=== PATIENT | female | born 1960 | race Hispanic/Latino ===

== ENCOUNTER 2022-06-09 14:20 | Emergency (ER) | payer BC, OTHER ==
--- OUTSIDE RECORDS SUMMARY | 2022-06-09 14:22 | XMS REPORT | Continuity of Care Document ---
:1960 Author Organization [facility] t Address [address] [place] [address] Care Team Providers Name Role Phone LU HERRERA Primary Care Physician Unavailable UL HERRERA Attending Clinician Unavailable Lu Herrera Attending Clinician SALTY ROBERTS Attending Clinician Unavailable LU HERRERA Admitting Clinician Unavailable Payers Payer Name Policy Type Policy Number Effective Date Expiration Date S ource [facility] [id number] 2021 00:00:00 Problems This patient has no known problems. Allergies, Adverse Reactions, Alerts Allergy Allergy Status Severity Reaction(s) Onset Inactive Treating Comm ents Source Name Type Date Date Clinician NO KNOWN Drug Active Univers ALLERGIE Class ity of S [facility] Social History Social Habit Start Date Stop Date Quantity Comments Source Exposure to Not sure [facility] SARS-CoV-2 (event) Medica l Branch Sex Assigned At [birth year] [facility] y [facility] 00:00:00 00:00:00 Medical Branch Smoking Status Start Date Stop Date Source Tobacco smoking consumption Univ [facility] Medications This patient has no known medications. Immunizations Ordered Filled Immunization Date Status Comments Sour e Immunization Name Name SARS-COV-2 COVID-19 2020-12-22 Completed Unive rsity of PFIZER VACCINE 00:00:00 [facility] SARS-COV-2 COVID-19 2020-12-22 Completed Unive rsity of PFIZER VACCINE 00:00:00 [facility] SARS-COV-2 COVID-19 2020-12-01 Completed Unive rsity of PFIZER VACCINE 00:00:00 [facility] SARS-COV-2 COVID-19 2020-12-01 Completed Unive rsity of PFIZER VACCINE 00:00:00 [facility] Procedures Procedure Date / Time Performing Clinician Source Performed NOTICE OF PRIVACY 2022-05-18 18:47:21 Doctor Unassigned, [facility] PRACTICES [facility] CONSENT/REFUSAL FOR 2022-05-18 18:46:56 Doctor Unassigned, [facility] [place] [facility] ASSIGNMENT OF BENEFITS 2022-05-18 18:46:30 Doctor Unassigned, [facility] [place] [facility] BI SELF-REFERRED SCREENING 2020-04-17 15:28:00 Lu Herrera [facility] TOMOSYNTHESIS BILATERAL Medical Branch [facility] PATIENT FINANCIAL 2020-04-17 14:45:31 [facility] NO SHOW OR MISSED 2020-04-17 14:45:10 Doctor Unassigned, [facility] APPOINTMENT POLICY [facility] ACKNOWLEDGEMENT CONSENT/REFUSAL FOR 2020-04-17 14:44:51 [facility] [place] [facility] ASSIGNMENT OF BENEFITS 2020-04-17 14:44:29 [facility] Encounters Start End Encounter Admission Attending Care Care Encounter Source Date/Time Date/Time Type Type Clinicians Facility Department ID 2022-05-18 2022-05-18 Outpatient Stephanie HERRERA [facility] [id number] Univers 13:47:11 23:59:00 LU paz [facility] 2022-05-18 2022-05-18 [facility] [id number] Univers 13:47:11 23:59:00 Encounter Lu MCNEAL [id number] brandi [facility] [id number] [facility] [id number] [facility] 800 Branch 2022-05-18 2022-05-18 Outpatient Stephanie HERRERA [facility] [id number] Univers 00:00:00 00:00:00 LU [id number] ity [facility] 2021-05-17 2021-05-17 [facility] [id number] Univers 13:27:58 23:59:00 Encounter Lu Haritha [id number] ity [facility] [id number] [facility] [id number] [address] 2021-05-17 2021-05-17 [facility] [id number] Univers 13:27:58 23:59:00 [facility] 2021-05-17 2021-05-17 [id number] Univers 13:40:00 13:40:00 LU [id number] [facility] 2020-12-22 2020-12-22 [facility] [id number] Univers 08:40:00 08:40:00 SALTY [id number] [facility] 2020-12-22 2020-12-22 [facility] [id number] Univers 08:40:00 08:40:00 SALTY ity [facility] 2020-12-01 2020-12-01 Outpatient [facility] [id number] Univers 10:00:00 10:00:00 [id number] [facility] 2020-12-01 2020-12-01 [facility] [id number] Univers 10:00:00 10:00:00 SALTY [facility] 2020-04-17 2020-04-17 [facility] [id number] Univers 09:43:00 23:59:00 Encounter Lu Haritha [id number] ity [facility] [id number] [facility] [id number] [address] 2020-04-17 2020-04-17 [facility] [id number] Univers 09:43:44 09:43:44 LU [facility] Results Test Description Test Time Test Comments Results Result Sour e Comments BI SELF-REFERRED 2020-04-08 Examination:BI Univ ersity of SCREENING 0 SELF-REFERRED [facility] TOMOSYNTHESIS 22:09:42 SCREENING Branch BILATERAL TOMOSYNTHESIS BILATERAL History:Patient is 60 year old and is seen for: ?Screening . Computer-aided detection (CAD) utilized. Comparisons: 01/04/2019 BI SCREENING TOMOSYNTHESIS BILATERAL, 12/29/2017 SCREENING DIGITAL BREAST MIK, and 05/29/2015 DIGITAL MAMMOGRAM, SCREENING Findings:The breasts have scattered areas of fibroglandular density. There is no evidence of suspicious masses, calcifications, or other abnormal findings. Impression:No mammographic evidence of malignancy. Recommendation:Sharyn kumari mammographic follow-up BI-RADS Category: Both 1 - Negative
[2022-06-09] MEDS ORDERED: ACETAMINOPHEN 500 MG TAB ONE (16:42)
--- NOTE | 2022-06-09 16:43 | EDPHYS ---
Physician Documentation [facility] Name: Agustin Lyons Age: 62 yrs Sex: Female : 1960 Arrival Date: 06/09/2022 Time: 14:24 Bed Treatment Private MD: Jessica Herrera Z ED Physician Herman Hansen HPI: 06/09 15:20 This 62 yrs old Female presents to ER via Ambulatory with complaints of Fever, cp Congestion, Headache. 15:20 The patient or guardian reports nasal congestion, headache, fever, body aches. Onset: cp The symptoms/episode began/occurred this morning. Associated signs and symptoms: Pertinent negatives: chest pain, diarrhea, sore throat, vomiting, cough. 15:20 Severity of symptoms: in the emergency department the symptoms are unchanged. Patient cp reports daughter recently tested positive for COVID-19. Historical: - Allergies: 14:55 No Known Allergies; ph - Immunization history:: Client reports receiving the 2nd dose of the Covid vaccine. - Social history:: Smoking status: Patient denies any tobacco usage or history of. ROS: 15:25 Constitutional: Positive for body aches, Negative for chills, fever, poor PO intake. cp 15:25 Cardiovascular: Negative for chest pain, edema, palpitations. cp 15:25 Eyes: Negative for injury, pain, redness, and discharge. cp 15:25 ENT: Positive for nasal congestion, Negative for drainage from ear(s), ear pain, sore throat, difficulty swallowing, difficulty handling secretions. 15:25 Respiratory: Negative for cough, shortness of breath, wheezing. 15:25 Abdomen/GI: Negative for abdominal pain, vomiting, diarrhea, constipation. 15:25 Back: Negative for injury or acute deformity, decreased range of motion. 15:25 Neuro: Positive for headache, Negative for altered mental status, dizziness, weakness. 15:25 All other systems are negative. Exam: 15:30 Constitutional: The patient appears in no acute distress, alert, awake, cp non-diaphoretic, non-toxic, well developed, well nourished. 15:30 Head/Face: Normocephalic, atraumatic. cp 15:30 Eyes: Periorbital structures: appear normal, Conjunctiva: normal, no exudate, no injection, Sclera: no appreciated abnormality, Lids and lashes: appear normal, bilaterally. 15:30 ENT: External ear(s): are unremarkable, Nose: nasal drainage, that is minimal, that is clear, Mouth: Lips: moist, Oral mucosa: pink and intact, moist, Posterior pharynx: Airway: no evidence of obstruction, patent. 15:30 Neck: ROM/movement: is normal, is supple, without pain, no range of motions limitations, no meningismus, Lymph nodes: no appreciated lymphadenopathy. 15:30 Chest/axilla: Inspection: normal. 15:30 Cardiovascular: Rate: tachycardic, Rhythm: regular, Edema: is not appreciated, JVD: is not appreciated. 15:30 Respiratory: the patient does not display signs of respiratory distress, Respirations: normal, no use of accessory muscles, no retractions, labored breathing, is not present, Breath sounds: decreased breath sounds, are not appreciated, stridor, is not appreciated, + upper airway congestion. wheezing: is not appreciated. 15:30 Abdomen/GI: Exam negative for discomfort, distension, guarding, Inspection: abdomen appears normal. 15:30 Skin: cellulitis, is not appreciated, no rash present. 15:30 Neuro: Orientation: to person, place \\T\\ time. Mentation: is normal, Motor: moves all fours, strength is normal, Gait: is steady, at a normal pace, without difficulty. Vital Signs: 14:49 BP 126 / 92; Pulse 104; Temp 97.9(T); Pulse Ox 97% ; Weight 77.11 kg; Height 5 ft. 1 ph in. (154.94 cm); Pain 3/10; 16:30 BP 124 / 84; Pulse 88; Resp 16; Pulse Ox 99% on R/A; hb 14:49 Body Mass Index 32.12 (77.11 kg, 154.94 cm) ph MDM: 15:20 Differential diagnosis: bronchitis, flu, URI, COVID-19. cp 16:31 Patient medically screened. cp 16:42 Data reviewed: vital signs, nurses notes, lab test result(s). cp 16:42 Counseling: I had a detailed discussion with the patient and/or guardian regarding: the cp historical points, exam findings, and any diagnostic results supporting the discharge/admit diagnosis, lab results, to return to the emergency department if symptoms worsen or persist or if there are any questions or concerns that arise at home. ED course: VSS. Patient appears non-toxic and no signs of respiratory distress. Will discharge to home for continued monitoring. 06/09 15:13 Order name: COVID-19 SARS RT PCR (Document "Date of Onset" if Symptomatic) cp 06/09 15:13 Order name: Influenza Screen (a \\T\\ B) cp 06/09 15:14 Order name: COVID-19 SARS RT PCR (Document "Date of Onset" if Symptomatic) ph 06/09 15:14 Order name: Flu ph Administered Medications: 16:35 Drug: Tylenol 1000 mg Route: PO; hb Disposition: 19:53 Co-signature as Attending Physician, Herman JASMINE was immediately available on-site ms3 in the Emergency Department for consultation in the care of the patient. . Disposition Summary: 06/09/22 16:42 Discharge Ordered Location: Home cp Problem: new cp Symptoms: are unchanged cp Condition: Stable cp Diagnosis - SARS-associated coronavirus as the cause of diseases classified elsewhere cp Followup: cp - With: Private Physician - When: 1 - 2 days - Reason: Worsening of condition Discharge Instructions: - Discharge Summary Sheet cp - Aspirin and Your Heart cp - COVID-19 cp - Things to Know about the COVID-19 Pandemic - [facility] cp - 10 Things You Can Do to Manage Your COVID-19 Symptoms at Home - [facility] cp - COVID-19: Quarantine vs. Isolation - [facility] cp - Prevent the Spread of COVID-19 if You Are Sick - [facility] cp Forms: - Medication Reconciliation Form cp - Thank You Letter cp - Antibiotic Education cp - Prescription Opioid Use cp Prescriptions: - Ibuprofen 800 mg Oral Tablet - take 1 tablet by ORAL route every 8 hours As needed take with food; 30 tablet; cp Refills: 0, Product Selection Permitted - Paxlovid (EUA) 150 mg x 2- 100 mg Oral tablet - take 3 tablet by ORAL route 2 times per day for 5 days per package directions; cp 30 tablet; Refills: 0, Product Selection Permitted Signatures: Dispatcher [employer] Meme Torre RN RN ph Edu Buckner PA PA Jeanie Keen RN RN Herman Hansen DO DO ms3 Corrections: (The following items were deleted from the chart) 16:41 06/08 15:25 Constitutional: Positive for body aches, Negative for chills, fever, poor cp PO intake, cp
--- NOTE | 2022-06-09 16:43 | ER ---
Nurse's Notes [facility] Name: Agustin Lyons Age: 62 yrs Sex: Female : 1960 Arrival Date: 06/09/2022 Time: 14:24 Bed Treatment Private MD: Jessica Herrera Z Diagnosis: SARS-associated coronavirus as the cause of diseases classified elsewhere Presentation: 06/09 14:49 Chief complaint: Patient states: Patient states she has a headache, achy, stuffy head. ph Started this morning. Daughter is positive for covid, lives with patient. Coronavirus screen: Vaccine status: Patient reports receiving the 2nd dose of the covid vaccine. congestion, fever, headache, muscle pain. Ebola Screen: No symptoms or risks identified at this time. Initial Sepsis Screen: Does the patient meet any 2 criteria? No. Patient's initial sepsis screen is negative. Does the patient have a suspected source of infection? No. Patient's initial sepsis screen is negative. Risk Assessment: Do you want to hurt yourself or someone else? Patient reports no desire to harm self or others. Onset of symptoms was June 09, 2022. 14:49 Method Of Arrival: Ambulatory ph 14:49 Acuity: WALTER 4 ph Triage Assessment: 14:55 General: Appears in no apparent distress. Pain: Denies pain. Respiratory: Breath sounds ph are clear bilaterally. 14:55 General: Behavior is calm, cooperative, appropriate for age. ph Historical: - Allergies: 14:55 No Known Allergies; ph - Immunization history:: Client reports receiving the 2nd dose of the Covid vaccine. - Social history:: Smoking status: Patient denies any tobacco usage or history of. Screenin:30 Abuse screen: Denies threats or abuse. Denies injuries from another. Nutritional hb screening: No deficits noted. Tuberculosis screening: No symptoms or risk factors identified. Fall Risk None identified. Assessment: 16:30 General: Appears in no apparent distress. hb 16:30 Pain: Pain currently is 4 out of 10 on a pain scale. Neuro: Level of Consciousness is hb awake, alert, obeys commands, Oriented to person, place, time, situation. Cardiovascular: Patient's skin is warm and dry. Respiratory: Respiratory effort is even, unlabored, Respiratory pattern is regular, symmetrical. GI: No signs and/or symptoms were reported involving the gastrointestinal system. : No signs and/or symptoms were reported regarding the genitourinary system. EENT: No signs and/or symptoms were reported regarding the EENT system. Derm: Skin is pink, warm \T\ dry. Musculoskeletal: No signs and/or symptoms reported regarding the musculoskeletal system. Vital Signs: 14:49 BP 126 / 92; Pulse 104; Temp 97.9(T); Pulse Ox 97% ; Weight 77.11 kg; Height 5 ft. 1 ph in. (154.94 cm); Pain 3/10; 16:30 BP 124 / 84; Pulse 88; Resp 16; Pulse Ox 99% on R/A; hb 14:49 Body Mass Index 32.12 (77.11 kg, 154.94 cm) ph ED Course: 14:24 Patient arrived in ED. rg4 14:24 Jessica Herrera MD is Private Physician. rg4 14:55 Triage completed. ph 14:55 Arm band placed on right wrist. Patient placed in waiting room, Patient notified of ph wait time. 15:01 Edu Buckner PA is PHCP. cp 15:01 Herman Hansen DO is Attending Physician. cp 16:30 Patient has correct armband on for positive identification. hb 17:09 No provider procedures requiring assistance completed. Patient did not have IV access hb during this emergency room visit. Administered Medications: 16:35 Drug: Tylenol 1000 mg Route: PO; hb Medication: 16:30 VIS not applicable for this client. hb Outcome: 16:42 Discharge ordered by MD. cp 17:05 Discharged to home ambulatory. hb 17:05 Condition: stable 17:05 Discharge instructions given to patient, Instructed on discharge instructions, follow up and referral plans. medication usage, Demonstrated understanding of instructions, follow-up care, medications, Prescriptions given X 2. 17:06 Patient left the ED. hb Signatures: Meme Melendez RN RN ph Edu Buckner PA PA cp Baxter, Heather, RN RN Juanita Morales rg4
[2022-06-09 17:31] VITALS: BP 126/92; TEMP 97.9; O2SAT 97
== END 2022-06-09 17:06 | disposition home or self-care (01) ==
LOC: ER 14:20
DX: U07.1 COVID-19 (principal)
CPT/HCPCS: 87804 ×2; 99283; U0003